=== PATIENT | male | born 1965 | race Caucasian/White ===

== ENCOUNTER 2020-04-24 14:49 | Inpatient (IN) | payer OTHER ==
[~2020-04-24] VITALS: Ht 185.4 cm; Wt 136.1 kg
[2020-04-24 15:00] VITALS: BP 144/81
[2020-04-24] MEDS ORDERED: LIPITOR 20 MG T20 M1 PO (15:14)
[2020-04-24] MEDS ORDERED: ASA81BEC PO (15:14)
[2020-04-24] MEDS ORDERED: METFORMIN HCL500 M3 PO (15:14)
[2020-04-24 15:34] LABS: ABSOLUTE NEUTROPHILS 3.9 thou/uL (1.4-8.2); BASOPHILS 0.9 % (0.0-2.0); EOSINOPHILS 3.6 % (0.0-3.0); HEMATOCRIT 47.7 % (42.0-52.0); HEMOGLOBIN 15.7 gm/dL (14.0-18.0); LYMPHOCYTES 26.2 % (24.0-44.0); MCHC 32.9 g/dL (28.0-37.0); MONOCYTES 12.3 % (1.0-8.0); PLATELET COUNT 282 thou/uL (150-400); RBC 5.82 mil/uL (4.50-6.00); RDW 14.8 % (10.5-14.5); WBC 6.9 thou/uL (4.0-11.0)
[2020-04-24 15:50] LABS: ANION GAP 11 mmol/L (7-16); BUN 8 mg/dL (7-18); CALCIUM 8.9 mg/dL (8.5-10.1); CHLORIDE 100 mmol/L (98-107); CO2 25 mmol/L (21-32); CREATININE 1.1 mg/dL (0.7-1.3); GLUCOSE 232 mg/dL (74-106); POTASSIUM 3.3 mmol/L (3.5-5.1); SODIUM 136 mmol/L (136-145)
[2020-04-24 16:00] LABS: ALBUMIN 3.1 g/dL (3.4-5.0); SGOT 61 U/L (15-37); SGPT 58 U/L (16-63); TOTAL PROTEIN 8.2 g/dL (6.4-8.2); TROPONIN-I <0.06 ng/mL (<0.06)
[2020-04-25 02:46] VITALS: BP 128/74
[2020-04-25 03:45] VITALS: BP 128/74
[2020-04-25 04:25] VITALS: BP 127/80
--- NOTE | 2020-04-25 07:43 | NUR ---
PT PROGRESSING TOWARDS D/C GOALS. BS DIMINSHED BUT UNLABORED ON 2LNC. NO S/S DISTRESS. ORIENTED PT TO RM, INSTRUCTED ON FALL PRECAUTIONS AND CALL LIGHT ETC. CAREPLAN INITIATED.
[2020-04-25 08:06] VITALS: BP 144/86
[2020-04-25 10:30] LABS: HEMATOCRIT 42.9 % (42.0-52.0); HEMOGLOBIN 14.2 gm/dL (14.0-18.0); MCH 27.4 pg (26.0-34.0); MCHC 33.1 g/dL (28.0-37.0); MCV 82.8 fL (80.0-100.0); RBC 5.19 mil/uL (4.50-6.00); RDW 14.3 % (10.5-14.5); WBC 5.8 thou/uL (4.0-11.0)
[2020-04-25 10:44] LABS: CALCIUM 8.7 mg/dL (8.5-10.1); POTASSIUM 3.5 mmol/L (3.5-5.1)
[2020-04-25 11:22] VITALS: BP 136/79
--- NOTE | 2020-04-25 18:14 | NUR ---
assumed care of pt at 0700. pt aox4 in no acute distress. breathing comfortably on 2L NC. up ad elvira. remdesivir initiated. calls appropriately. wcm.
[2020-04-25 19:18] VITALS: BP 114/69
[2020-04-26 03:44] VITALS: BP 106/60
--- NOTE | 2020-04-26 04:22 | NUR ---
continues on 2 liters n/c. denies pain. mrsa and flu a/b collected tonight. instructed to provide a urine sample. careplan reivewed.
[2020-04-26 04:47] LABS: ABSOLUTE NEUTROPHILS 7.4 thou/uL (1.4-8.2); BASOPHILS 0.1 % (0.0-2.0); HEMATOCRIT 43.9 % (42.0-52.0); HEMOGLOBIN 14.5 gm/dL (14.0-18.0); LYMPHOCYTES 11.4 % (24.0-44.0); MCH 27.4 pg (26.0-34.0); MCV 83.1 fL (80.0-100.0); MONOCYTES 4.9 % (1.0-8.0); PLATELET COUNT 273 thou/uL (150-400); POLYS 83.6 % (36.0-66.0); RBC 5.28 mil/uL (4.50-6.00); RDW 14.4 % (10.5-14.5); WBC 8.8 thou/uL (4.0-11.0)
[2020-04-26 04:54] LABS: FIBRINOGEN 339.7 mg/dL (210-360); INR 1.1; PROTIME 10.8 Seconds (9.3-11.4)
[2020-04-26 05:04] LABS: ALBUMIN 2.8 g/dL (3.4-5.0); CALCIUM 8.9 mg/dL (8.5-10.1); POTASSIUM 4.4 mmol/L (3.5-5.1); TOTAL BILIRUBIN 0.5 mg/dL (0.2-1.0); TOTAL PROTEIN 7.5 g/dL (6.4-8.2)
[2020-04-26 07:24] VITALS: BP 118/67
[2020-04-26 15:16] VITALS: BP 127/76
--- NOTE | 2020-04-26 15:48 | NUR ---
assumed care of pt at 0700. weaned to room air. feeling better. ivf infusing per order. vitals WNL. blood sugars remain high. physician aware. wcm.
[2020-04-26 20:10] VITALS: BP 125/74
--- NOTE | 2020-04-26 22:01 | NUR ---
PT PROGRESSING TOWARDS D/C GOALS. VSS. AFEBRILE. SATS WNL. UNLABORED ON RA. NON- PRODUCTIVE COUGH NOTED. DENIED PAIN OR SOA. RESTING QUIETLY IN RECLINER CHAIR. CALL LIGHT IN REACH.
[2020-04-27 03:05] LABS: GLYCOHEMOGLOBIN (HGB A1C) 10.5 % (4.8-5.6)
[2020-04-27 04:18] VITALS: BP 141/77
--- NOTE | 2020-04-27 04:20 | NUR ---
PT PROGRESSING TOWARDS D/C GOALS VSS. RR 24 ON RA SAT 92%. BS DIMINISHED. NO C/O PAIN OR SOA.
--- NOTE | 2020-04-27 07:20 | EKG ---
[address] [address] [place] [address] ELECTROCARDIOGRAM REPORT Name: CATERINA EDDY Room #: 355-P ADM IN M.R.#: [id number] Admission: 04/24/20 Attend Phys: Sumeet Rao MD Discharge: Date of : 67 Report #: [id number] [facility] ED Test Date: 2020-04-24 Test Time: 15:22:45 Pat Name: CATERINA EDDY Department: Room: [facility] Gender: M Web Developer: elise : 1965 Requested By: Christoph Mercado Order Number: [id number] MD: Kevin Partida Measurements Intervals [place] Rate: 98 P: 51 NV: 158 QRS: 112 QRSD: 96 T: -7 QT: 420 QTc: 537 Interpretive Statements Sinus rhythm Left posterior fascicular block Borderline T wave abnormalities Prolonged QT interval No previous ECG available for comparison Electronically Signed On 04-27-2020 7:20:13 MAINTENANCE LEADER by Kevin Partida [email or web address] <ELECTRONICALLY SIGNED> By: Kevin Partida MD, [facility] 04/27/20 0720 1522 1522 Kevin Partida MD, FACC /EPI
[2020-04-27 07:47] VITALS: BP 138/93
[2020-04-27 15:35] VITALS: BP 139/65
--- NOTE | 2020-04-27 16:00 | NUR ---
INITIAL ASSESSMENT: Received consult for discharge planning. SW reviewed chart and spoke with nursing and attending physician. Pt was admitted from home due to acute respiratory failure. Pt had first positive COVID test on 04/12. Pt placed in Enhanced Isolation. Pt is afebrile and not requiring O2. Pt is on IV abx and IV steroids. Pt is completing courses of Remdesivir and Ivermectin. SW spoke with pt via phone. Introduced role of SW. Pt states he lives at home with a roommate. Prior to admission, pt was independent with ADLs. No use of DME. No hx of HH or post-acute placement. Pt's PCP is Dr. Daisy Nunez. Plan is for pt to discharge home when medically stable. [facility] is following to assist as needed with discharge planning.
[2020-04-27 19:23] VITALS: BP 122/63
--- NOTE | 2020-04-27 19:49 | NUR ---
PATIENT SLEEPING AT THIS TIME. RESPIRATIONS ARE EVEN UNLABORED. PLEASANT WITH CARES.
[2020-04-28 05:30] LABS: HEMATOCRIT 45.5 % (42.0-52.0); HEMOGLOBIN 15.3 gm/dL (14.0-18.0); MCH 27.7 pg (26.0-34.0); MCHC 33.6 g/dL (28.0-37.0); MCV 82.4 fL (80.0-100.0); PLATELET COUNT 302 thou/uL (150-400); RBC 5.52 mil/uL (4.50-6.00); RDW 14.8 % (10.5-14.5); WBC 10.1 thou/uL (4.0-11.0)
[2020-04-28 05:41] LABS: CREATININE 0.9 mg/dL (0.7-1.3); POTASSIUM 4.3 mmol/L (3.5-5.1); TOTAL BILIRUBIN 0.6 mg/dL (0.2-1.0); TOTAL PROTEIN 7.5 g/dL (6.4-8.2)
[2020-04-28 05:45] VITALS: BP 105/71
[2020-04-28 07:56] VITALS: BP 120/76
[2020-04-28 08:51] LABS: ABSOLUTE NEUTROPHILS 8.1 thou/uL (1.4-8.2); METAMYELOCYTES 2 %; MYELOCYTES 1 %
[2020-04-28 08:52] LABS: ANISOCYTOSIS 1+; POLYCHROMASIA OCCASIONAL
--- NOTE | 2020-04-28 15:08 | NUR ---
SW reviewed chart and spoke with nursing and attending physician. Pt remains in Enhanced Isolation due to COVID-19. Pt is afebrile and not requiring O2. Pt is on IV abx and IV steroids. Pt is completing course of Remdesivir. Discharge home is anticipated for tomorrow. [facility] is following to assist as needed with discharge planning.
[2020-04-28 15:24] VITALS: BP 133/84
--- NOTE | 2020-04-28 17:36 | NUR ---
PATIENT RESTED IN ROOM THROUGH THE DAY. HE IS ALERT ORIENTED X4. PLEASANT WITH CARE. RESPIRAITNS ARE EVEN NON LABORED. BLOOD SUGARS HAVE STAYED ELEVATED THROUGH THE DAY. WILL CONT WIT HPLANOF CARE.
[2020-04-28 20:54] VITALS: BP 123/77
[2020-04-29 03:57] VITALS: BP 116/77
[2020-04-29 07:43] VITALS: BP 123/87
[2020-04-29] MEDS ORDERED: PREDNISONE 20 M20 M1 PO (09:49)
[2020-04-29] MEDS ORDERED: GLIPIZIDE 10 MG10 MG PO (09:49)
[2020-04-29 12:02] VITALS: BP 123/87
--- NOTE | 2020-04-29 12:56 | NUR ---
PATIENT BEING DISCHARGED AT THIS TIME TO HOME. HE IS ALERT ORIENTED X4. PLEASANT WITH CARE. EDUCATED ON NEED TO ADHERE TO DIABETIC DIET. HE STATES HE UNDERSTOOD AND WILL CHECK. ALSO ENCOURAGED WITH FOLLOW UP WITH PRIMARY CARE DOCTOR. WILL CONT WITH PLAN.
--- NOTE | 2020-04-29 15:15 | NUR ---
DISCHARGE NOTE: SW reviewed chart and spoke with nursing and attending physician. Pt remains in Enhanced Isolation. Pt to have lost dose of Remdesivir today and will discharge home. SW spoke with pt via phone to discuss discharge plan. Pt is aware and agreeable with plan. Pt denies having any discharge needs. Pt's family to provide transportation home. No additional SW needs identified at this time, but is available to assist should needs arise.
== END 2020-04-29 12:58 | disposition home or self-care (01) | DRG 871 ==
LOC: ER 14:49 → 3W 18:10 → EROBS 18:10 → 3W 04-25 03:45
PROVIDERS: Physician Assistant; Specialist; ADMIT Hospitalist; ATTEND Hospitalist
PROC: XW033E5 Introduction of Remdesivir Anti-infective into Peripheral Vein, Percutaneous Approach, New Technology Group 5 (ICD-10-PCS; principal; 2020-04-24)
DX: A41.9 Sepsis, unspecified organism (principal); U07.1 COVID-19; J96.01 Acute respiratory failure with hypoxia; J12.82 Pneumonia due to coronavirus disease 2019; E11.9 Type 2 diabetes mellitus without complications; E87.6 Hypokalemia; E66.9 Obesity, unspecified; Z79.84 Long term (current) use of oral hypoglycemic drugs; Z79.82 Long term (current) use of aspirin; Z68.39 Body mass index [BMI] 39.0-39.9, adult; Z79.899 Other long term (current) drug therapy
CPT/HCPCS: 10879